=== PATIENT | female | born 1995 | race Caucasian/White ===

== ENCOUNTER 2023-07-27 18:52 | Emergency (ER) | payer MEDICAID, SELFPAY ==
[2023-07-27 19:17] VITALS: BP 118/77; PULSE 78; RESP 16; TEMP 37.2; O2SAT 97; BMI 39.5
[2023-07-27 19:43] LABS: MANUAL DIFF FLAG NO
[2023-07-27 19:45] LABS: Basophils Percent Auto 0.3 % (0-2); Eosinophils Absolute Auto 0.2 X10*3/uL (0.0-0.4); Eosinophils Percent Auto 1.6 % (0-4); Hematocrit 45.5 % (37.0-47.0); Hemoglobin 15.2 g/dl (12.0-16.0); Imm Gran Abs Auto 0.03 X10*3/uL (0.00-0.03); Imm Gran Pct Auto 0.3 % (0.0-0.4); Lymphocytes Absolute Auto 3.6 X10*3/uL (1.2-4.9); Lymphocytes Percent Auto 32.6 % (20-40); Mean Corpuscular HGB Conc 33.4 g/dl (31.0-35.0); Mean Corpuscular Hemoglobin 28.8 pg (27.0-33.0); Mean Corpuscular Volume 86.3 fL (80.0-98.0); Monocytes Absolute Auto 0.7 X10*3/uL (0.1-1.2); Monocytes Percent Auto 6.6 % (2-11); Neutrophils Absolute Auto 6.4 x10*3/uL (2.0-8.3); Neutrophils Percent Auto 58.6 % (45-73); Platelet Count 175 X10*3/uL (160-400); Red Blood Count 5.27 X10*6/uL (4.20-5.50); Red Cell Distribution Width 13.5 % (11.0-16.0)
[2023-07-27 20:00] LABS: Alanine Aminotransferase 12 U/L (0-31); Albumin Level 3.6 g/dL (3.5-5.0); Alkaline Phosphatase 64 U/L (39-117); Anion Gap 10 (12-20); Aspartate Amino Transferase 13 U/L (5-31); Bilirubin Total 0.2 mg/dL (0.0-1.0); Blood Urea Nitrogen 15 mg/dL (9-16); Calcium 8.9 mg/dL (8.4-10.2); Carbon Dioxide 24 mmol/L (22-29); Chloride 110 mmol/L (96-108); Creatinine Clr Calc Pharmacy 106.7; Estimated Glomerular Filt Rate > 60; Glucose Random 101 mg/dL (60-115); Potassium 4.2 mmol/L (3.3-5.1); Sodium 140 mmol/L (135-145); Total Protein 5.9 g/dL (6.5-8.0)
[2023-07-27 20:07] LABS: Appearance Urine Clear; Color Urine Yellow; Glucose Urine UA Negative (Negative); Leukocyte Esterase Urine Small (1+) (Negative); Nitrite Urine Negative (Negative); PH 6.5 (5.0-9.0); UMIC TRIGGER UACC YES; Urine Blood Negative (Negative); Urine Ketones Negative (Negative); Urine Protein Negative (Neg-Trace)
[2023-07-27 20:18] LABS: Bacteria Urine 1+ (None Seen); Hyaline Casts Urine 0-2 /LPF (0-2); RBC Urine 0-2 /HPF (0-2); Squamous Epithelial Cell Urine 0-2 /HPF (0-2); UACC Culture Trigger YES; WBC Urine 0-5 /HPF (0-5)
[2023-07-27 20:19] VITALS: BP 113/71; PULSE 69; RESP 18; TEMP 36.6; O2SAT 99
--- NOTE | 2023-07-27 20:21 | MHC.EDTECH ---
Patient came in from waiting room,patient changed into hospital attire,hourly rounds and vitals taken. Patient is waiting to see provider and call reyes within reach.
--- NOTE | 2023-07-27 21:52 | ED_ITS ---
HPI - Abdominal Pain General Chief Complaint: Abdominal Pain Stated Complaint: Abd cramping? Time Seen by Provider: 07/27/23 21:04 Source: patient Mode of arrival: ambulatory History of Present Illness HPI narrative: 27-year-old female with a past medical history of what she feels may be endometriosis and states that she has been having cramping for 1-2 weeks and feels that she has been late on her menstrual cycle but states that home p regnancy test has been negative. This is not been accompanied by any fever, chills, nausea/vomiting there has been urinary frequency and she denies any vaginal discharge. Related Data Previous Rx's Medication Instructions Recorded nitrofurantoin 100 mg PO Q12H 5 days #10 caps 07/27/23 monohydrate/macrocrystals 100 mg capsule (Macrobid) phenazopyridine 200 mg tablet 200 mg PO TID 6 doses #6 tabs 07/27/23 (Pyridium) Allergies Allergy/AdvReac Type Severity Reaction Status Date / Time codeine Allergy Rash Verified 07/27/23 19:55 Penicillins Allergy Rash Verified 07/27/23 19:54 Review of Systems Review of Systems Pertinent positives and negatives as stated in HPI PMFSH Past Medical History Source: nursing notes reviewed Social History Social History Advance Directives: No Advance Directives Information Provided: No Physical Exam ED Vital Signs: Vital Signs - 24 hr 07/27/23 19:17 07/27/23 20:19 07/27/23 22:27 Temperature 98.9 F 97.8 F Pulse Rate 78 69 71 Respiratory Rate 16 18 18 Blood Pressure 118/77 113/71 127/85 Pulse Oximetry 97 99 98 Oxygen Delivery Method Room Air Room Air Room Air BMI result Body Mass Index 39.5 VITAL SIGNS: Reviewed. GENERAL: Elevated BMI, Well developed, well nourished, in no acute distress. HEAD: Normocephalic/atraumatic EYES: PERRLA, EOMI EARS: Ext canals without abnormality NOSE: Nares patent bilateral OROPHARYNX: no oral lesions noted, posterior pharynx clear NECK: Supple, no adenopathy LUNGS: Normal breath sounds. No adventitious sounds or accessory muscle use. SpO2<99> CARDIOVASCULAR: Regular rate and rhythm without noted murmurs ABDOMEN: Soft, mild lower abdominal discomfort, non-distended with bowel sounds. MUSCULOSKELETAL: No tenderness, deformities, or effusions noted on gross inspection. EXTREMITIES: No cyanosis, clubbing or edema. SKIN: Inspection of the skin reveals no rashes NEUROLOGIC: Alert and oriented x 4. Strength and sensation to light touch were grossly intact x 4. Medical Decision Making Medical Decision Making [facility] Narrative: 27-year-old female with history and clinical presentation, DDX: Ectopic, UTI, renal colic, lower clinical suspicion for SBO/STI/appendicitis or diverticulit is. I have reviewed all investigations, hematologic indices are grossly within normal limits aside from a very mild leukocytosis-11 that is not accompanied by any elevated temperature and no subjective report of fever or chills. There is no anemia/left shift or thrombocytopenia. Chemistry indices are grossly within normal limits, there is no electrolyte or liver enzyme abnormalities, no NEELA. U rinalysis positive for leukocyte esterase and bacteria. My interpretation is that patient likely has a cystitis and will be treated with Pyridium and Macrobid and will receive 1st doses here in the emergency room. She is otherwise discharged home. Beta hCG is negative. Differential Diagnosis Differential Diagnoses: The differential diagnosis associated with the presentation includes Please see the discussion above Admission/Observation Consideration of admission/observation: Escalation of care including admission/observation considered Please see the discussion above Lab Data [facility] Lab Attestation statement: I reviewed the patient's lab results. Please see the discussion above 07/27/23 19:40 07/27/23 19:40 Labs: Lab Results 07/27/23 07/27/23 07/27/23 Range/Units 19:40 19:40 19:58 WBC 11.0 H (4.8-10.8) X10*3/uL RBC 5.27 (4.20-5.50) X10*6/uL Hgb 15.2 (12.0-16.0) g/dl Hct 45.5 (37.0-47.0) % MCV 86.3 (80.0-98.0) fL MCH 28.8 (27.0-33.0) pg MCHC 33.4 (31.0-35.0) g/dl RDW 13.5 (11.0-16.0) % Plt Count 175 (160-400) X10*3/uL MPV 11.0 (9.4-12.3) fL Immature Gran % (Auto) 0.3 (0.0-0.4) % Neut % (Auto) 58.6 (45-73) % Lymph % (Auto) 32.6 (20-40) % [place] % (Auto) 6.6 (2-11) % Eos % (Auto) 1.6 (0-4) % Baso % (Auto) 0.3 (0-2) % Lymph # (Auto) 3.6 (1.2-4.9) X10*3/uL [place] # (Auto) 0.7 (0.1-1.2) X10*3/uL Eos # (Auto) 0.2 (0.0-0.4) X10*3/uL Baso # (Auto) 0.0 (0.0-0.2) X10*3/uL Abs Immat Gran (auto) 0.03 (0.00-0.03) X10*3/uL Absolute Neuts (auto) 6.4 (2.0-8.3) x10*3/uL Absolute Nucleated RBC 0.000 (0.0-0.012) X10*3/uL Nucleated RBC % (auto) 0.0 (0.0-0.2) /100WBC Sodium 140 (135-145) mmol/L Potassium 4.2 (3.3-5.1) mmol/L Chloride 110 H (96-108) mmol/L Carbon Dioxide 24 (22-29) mmol/L Anion Gap 10 L (12-20) BUN 15 (9-16) mg/dL Creatinine 0.94 (0.5-1.4) mg/dL Estim Creat Clear Calc 106.7 Estimated GFR > 60 Random Glucose 101 (60-115) mg/dL Calcium 8.9 (8.4-10.2) mg/dL Total Bilirubin 0.2 (0.0-1.0) mg/dL AST 13 (5-31) U/L ALT 12 (0-31) U/L Alkaline Phosphatase 64 (39-117) U/L Total Protein 5.9 L (6.5-8.0) g/dL Albumin 3.6 (3.5-5.0) g/dL Beta HCG, Quant < 2 mIU/mL Urine Color Yellow Urine Appearance Clear Urine pH 6.5 (5.0-9.0) Ur Specific [place] 1.020 (1.005-1.025) Urine Protein Negative (Neg-Trace) mg/dL Urine Glucose (UA) Negative (Negative) mg/dL Urine Ketones Negative (Negative) mg/dL Urine Blood Negative (Negative) Urine Nitrite Negative (Negative) Ur Leukocyte Esterase Small (1+) H (Negative) Urine RBC 0-2 (0-2) /HPF Urine WBC 0-5 (0-5) /HPF Ur Squamous Epith Cells 0-2 (0-2) /HPF Urine Bacteria 1+ (None Seen) Hyaline Casts 0-2 (0-2) /LPF Medications Administered Discontinued Medications Generic Name Dose Route Start Last Admin Trade Name Susu PRN Reason Stop Dose Admin Acetaminophen 975 mg 07/27/23 21:55 07/27/23 22:20 Acetaminophen 325 Mg Tablet PO 07/27/23 21:56 975 mg ONCE ONE Administration Ketorolac Tromethamine 15 mg 07/27/23 21:55 07/27/23 22:20 Ketorolac Tromethamine 15 Mg/Ml Vial IM 07/27/23 21:56 Not Given ONCE ONE Nitrofurantoin Macrocrystals 100 mg 07/27/23 22:01 07/27/23 22:20 Nitrofurantoin Monohyd/M-Cryst 100 Mg Capsule PO 07/27/23 22:02 100 mg ONCE ONE Administration Phenazopyridine HCl 200 mg 07/27/23 22:01 07/27/23 22:21 Phenazopyridine Hcl 200 Mg Tablet PO 07/27/23 22:02 200 mg ONCE ONE Administration Discharge Plan Discharge Clinical Impression: Cystitis Patient Disposition: Home, Self-Care Instructions: Urinary Tract Infection in Women (ED) Additional Instructions: 1. Recommend [id number] Tylenol/ibuprofen as needed for pain control. 2. The pyridium that you have received will change the color of your urine but will help with the discomfort that you are experiencing. 3. Please complete the entire course of antibiotics as prescribed. 4. Follow-up with your primary care provider in the next 3-4 days. Return to the ER for any worsening symptoms. Prescriptions: New phenazopyridine [Pyridium] 200 mg tablet 200 mg PO TID Qty: 6 0RF nitrofurantoin monohyd/m-cryst [Macrobid] 100 mg capsule 100 mg PO Q12H 5 Days Qty: 10 0RF Rx Instructions: must administer with a meal/food
[2023-07-27] MEDS: Acetaminophen 325 MG TABLET 975 MG PO (22:20)
[2023-07-27] MEDS: Nitrofurantoin Monohyd/M-Cryst 100 MG CAPSULE PO (22:20)
[2023-07-27] MEDS: Phenazopyridine HCL 200 MG TABLET PO (22:21)
--- NOTE | 2023-07-27 22:22 | PC.NURSE ---
Pt medicated per JAN, refusing Toradol, recently took Ibuprofen 600 mg [employer] @ ED.
[2023-07-27 22:27] VITALS: BP 127/85; PULSE 71; RESP 18; O2SAT 98
--- NOTE | 2023-07-27 22:27 | MHC.EDTECH ---
Hourly rounds and vitals completed and call reyes within reach
[2023-07-27 22:31] LABS: HCG Quantitative < 2 mIU/mL
== END 2023-07-27 23:49 | disposition home or self-care (01) ==
PROVIDERS: Emergency Provider Student in an Organized Health Care Education/Training Program
DX: N30.90 Cystitis, unspecified without hematuria (principal); R25.2 Cramp and spasm; Z79.899 Other long term (current) drug therapy
CPT/HCPCS: 36415; 80053; 81001; 84702; 85025; 87086; 96372; 99284